=== PATIENT | female | born 1995 | race Caucasian/White ===

== ENCOUNTER 2021-05-27 17:26 | Emergency (ER) | payer MEDICAID, SELFPAY ==
--- NOTE | ~2021-05-27 | XR_ITS ---
EXAMINATION: XR CHEST CLINICAL INFORMATION: Cough COMPARISON: None TECHNIQUE: Frontal view of the chest was obtained. FINDINGS: No significant abnormality is noted involving the heart, lungs, mediastinum, bony thorax or soft tissues. XR/XR chest 1V IMPRESSION: No acute pulmonary disease.
[2021-05-27 17:47] VITALS: BP 113/65; PULSE 69; RESP 18; TEMP 36.9; O2SAT 100; BMI 30.7
== END 2021-05-27 19:47 | disposition left against medical advice (07) ==
PROVIDERS: Emergency Provider Emergency Medicine; PCP Internal Medicine
DX: R05.9 Cough, unspecified (principal); R51.9 Headache, unspecified
CPT/HCPCS: 71045; 99282; 99283

== ENCOUNTER → 2022-04-17 13:57 | Outpatient (BNVA) | payer MEDICAID, SELFPAY | PROVIDERS: PCP Internal Medicine; Visit Provider Surgery | DX: K64.8 Other hemorrhoids (principal) | CPT/HCPCS: 46600; 99202 ==

== ENCOUNTER 2022-07-18 08:35 | Day surgery (SDC) | payer MEDICAID, SELFPAY ==
[2022-05-27 11:49] VITALS: BMI 31.6
[2022-07-18] VITALS (19 sets, daily range): BP systolic 102–144; BP diastolic 64–80; PULSE 56–97; RESP 10–20; TEMP 37.1–38; O2SAT 94–100
[2022-07-18 09:01] LABS: UPreg QC Valid YES; Urine Pregnancy NEGATIVE (NEGATIVE)
[2022-07-18] MEDS: Lactated Ringers 1,000 ML 50 ML IVCONT (09:12)
--- NOTE | 2022-07-18 09:28 | HO.ANESPROP2 ---
HPI - Anesthesia Eval Consult details Narrative: 26 yo female patient for EUA, Hemorrhoidectomy PMFSH Active Problems Active Problems: All Active Problems (Updated 07/18/22 @ 09:11 by Amanda Oneill RN) Hemorrhoids with complication (Acute) Past Medical History Medical History (Updated 07/18/22 @ 09:34 by Sarah Streeter MD) Asthma Hemorrhoids with complication Family History Family History (Updated 04/17/22 @ 14:09 by LEONA Lewis) Paternal Aunt Breast cancer Family history of problems with anesthesia: No Surgical History Surgical History (Updated 07/18/22 @ 09:11 by Amanda Oneill RN) Hx of laparoscopic gastric banding History of Problems with Anesthesia: No Social History Social History (Updated 04/17/22 @ 14:10 by LEONA Lewis) Alcohol intake: never Patient Tobacco Use Status: Never used Tobacco Are you DNR?: No Advance Directives: No Advance Directives Information Provided: Yes Recently lost weight without trying: No Patient : No FDLMP: 2 weeks ago Meds Allergies Allergy/AdvReac Type Severity Reaction Status Date / Time No Known Allergies Allergy Verified 04/17/22 14:07 Active Medications: Current Medications Lactated Ringer's (Lr) 1,000 mls @ 50 mls/hr IVCONT .Q20H [place] Last Admin: 07/18/22 09:12 Dose: 50 mls/hr Home Medications Medication Instructions Recorded Confirmed Last Taken Type albuterol sulfate 90 mcg/actuation 2 inh inhalation Q4-6H PRN Wheezing 07/18/22 07/18/22 05/28/22 History aerosol inhaler Exam Exam Date and Time: July 18, 202228 Height,Weight and Vital Signs: Height 5 ft Weight 73.482 kg Last Vital Signs Temp 98.7 F 07/18/22 08:55 Pulse 97 07/18/22 08:55 Resp 20 07/18/22 08:55 BP 102/67 07/18/22 08:55 Pulse Ox 98 07/18/22 08:55 O2 Del Method 07/18/22 08:55 Pertinent Lab Results Pertinent Lab Results: Laboratory Tests 07/18/22 08:40 Urine Test NEGATIVE Airway Mallampati Class: I TM Dist: >3cm Neck ROM: Full Loose/Missing/Broken Teeth: No (Denies broken, loose, missing teeth) Heart: RRR Lungs: CTAB. No wheezes Assessment and Plan Assessment Anesthesia Assessment: Anesthesia Plan Discussed and Chart Reviewed Final Anesthetic Review Family History of Problems with Anesthesia: No History of Problems with Anesthesia: No NPO: Yes ASA Class: II Final Preanesthetic Review: No Changes in Pt Med Stat, Meds/Allgs Chart Reviewed, Consent Obtained/Reviewed and Anes Risks/Benef Reviewed Patient Risk: Low Procedure Risk: Low Assessment/Block/Sedation in SS: Assess/Block/Sedation-SS Anesthetic Plan Anesthetic Plan: GA Disposition: Standard PACU
--- NOTE | 2022-07-18 09:52 | MHC.SHP ---
Pre-Procedural Eval Section A Date of Service: 07/18/22 The patient is an INPATIENT: No Section B Chief Complaint: Other hemorrhoids Details of Present Illness: has had pain and swelling with hemorrhoids Relevant Family History (Specify if Yes): No Relevant Social History: None Present Medications: None Medical History: No relevant PMH History of Previous Operations: No relevant previous surgery Allergies: Allergies Allergy/AdvReac Type Severity Reaction Status Date / Time No Known Allergies Allergy Verified 04/17/22 14:07 Review of Systems Sugical H&P ROS: Negative: Constitution, Cardiovascular, Respiratory, Neurological, Psychiatric, Hem-Onc, Allergic/Immunologic, Gastrointestinal, Genitourinary, Musculoskeletal, Integumentary, Endocrine and Eyes/Ears/Nose/Throat Exam Surgical H&P Exam: Normal: HEENT, Normal: Heart, Normal: Lungs, Normal: Extremities, Normal: Abdomen, Normal: Skin and Normal: Neurological Plan Diagnosis/Plan: Unchanged I have reviewed the history and physical and performed a pertinent physical examination on my patient. No changes have occurred unless specified. Time Spent With Patient Time: Total time managing care of this patient today ____ minutes.
--- NOTE | 2022-07-18 10:54 | W.PM.OPN ---
Operative Note Operative Note Date of Service: 07/18/22 Narrative: Preop diagnosis: Internal and external hemorrhoids with pain Postop diagnosis: The same Procedure: Exam under anesthesia hemorrhoidectomy x2 columns Surgeon: Dex Jackson MD Director Of Operations Home Health:ROBI Nunez student The patient is a 26 year female with a long history of frequent pain and swelling with her hemorrhoids. She was seen in the office and was noted to have prominent internal and hemorrhoidal columns on both the left and right side. Because of her symptoms wanted to proceed hemorrhoidectomy. She understood the technique for procedure as well as the risks, benefits, and alternatives Was brought to the operating room placed in prone ishan-knife position under general anesthesia via LMA. The buttocks were retracted with wide tape laterally. The perianal area was prepped and draped in the usual sterile fashion. A surgical time-out was done. The patient received Cefotan 2 g IV preoperatively. Examination of the anal orifice revealed prominent external hemorrhoids on both the left and right side. I inserted a Armond Kim retractor and examined the anal canal circumferentially. Again these hemorrhoidal columns were noted and were seen to be a mix of internal and external. There were no other lesions. I applied a Martinze grasper at the hemorrhoidal column on the left to retract this. I made a toyqdx-qz-mffih stitch using chromic 3-0 at the pedicle about the dentate line. I made an incision around this hemorrhoidal column to the perianal skin using blade a blade 15. I excised this hemorrhoidal column along this incision about the plane of the sphincters using scissors. I closed this incision with a running chromic 3-0 stitch. Additional hemostatic hliyfo-vt-wyjlp sutures were placed for oozing areas . The same procedure was duplicated for the hemorrhoidal column on the right. Again this was retracted with a Martinez grasper. I made a figure of 8 stitch at the pedicle. I made an incision around this hemorrhoidal column to the perianal skin using a blade 15. I excised this hemorrhoidal column above the plane of sphincters using scissors and closed the incision with a running chromic 3-0 stitch. Multiple additional hemostatic ylzoiz-ay-xtmrw sutures were placed . There was note of a small external hemorrhoid anteriorly which causing some skin redundancy so this was excise again as well using a blade number 15. This represented likely a skin tag from previous L swelling. I closed this incision with a running chromic 3-0 stitch . I observed for hemostasis. Once hemostasis was confirmed, I positioned a rolled Gelfoam packing into the anal canal for additional hemostasis. I infiltrated the perianal area with Marcaine 0.5% for postop analgesia. The procedure was completed. The patient tolerated the procedure well. There were no immediate complications. Initial and final counts of sponges and instruments were correct. Estimated blood loss about 25 cc. The patient was extubated without difficulty and transferred to the recovery room with stable vital signs.
[2022-07-18] MEDS: oxyCODONE HCl Immed Release 5 MG TABLET PO ×2 (11:16→12:20)
[2022-07-18] MEDS: Acetaminophen 325 MG TABLET 650 MG PO (11:17)
[2022-07-18] MEDS: fentaNYL citrate/PF 100 MCG/2 ML VIAL 25 MCG IVPUSH ×4 (11:19→11:37)
[2022-07-18] MEDS: fentaNYL citrate/PF 100 MCG/2 ML VIAL 50 MCG IVPUSH (12:19)
== END 2022-07-18 13:39 | disposition home or self-care (01) ==
PROVIDERS: Anesthesiology; PCP Internal Medicine; Visit Provider Surgery
PROC: (CPT 46260; principal; 2022-07-18 10:10)
DX: K64.8 Other hemorrhoids (principal); K64.4 Residual hemorrhoidal skin tags; K62.89 Other specified diseases of anus and rectum; J45.909 Unspecified asthma, uncomplicated; Z79.899 Other long term (current) drug therapy; Z98.84 Bariatric surgery status
CPT/HCPCS: 46260; 81025; 88304; J1100; J1885; J2250; J2405; J2550; J2795; J3010

== ENCOUNTER → 2022-07-30 10:38 | Outpatient (BNVA) | payer MEDICAID, SELFPAY | PROVIDERS: PCP Internal Medicine; Referring Provider Internal Medicine; Visit Provider Surgery | DX: Z13.89 Encounter for screening for other disorder (principal) ==

== ENCOUNTER → 2022-08-27 10:40 | Outpatient (BNVA) | payer MEDICAID, SELFPAY | PROVIDERS: PCP Internal Medicine; Referring Provider Internal Medicine; Visit Provider Surgery | DX: Z13.89 Encounter for screening for other disorder (principal) ==

== ENCOUNTER 2023-05-13 11:44 | Outpatient (REF) | payer MEDICAID, SELFPAY ==
[2023-05-14 02:36] LABS: CT PCR NOT DETECTED (Not Detect.); NG PCR NOT DETECTED (Not Detect.)
[2023-05-14 08:25] LABS: Syphilis Screen Nonreactive (Nonreactive)
[2023-05-14 08:40] LABS: ~Hepatitis C Antibody Nonreactive (Nonreactive)
[2023-05-16 17:27] LABS: HIV RNA PCR Qn Copies Not Detected Copies/mL; HIV RNA PCR Qn Log Copies Not Detected Log cps/mL
== END 2023-05-13 11:45 | disposition home or self-care (01) ==
LOC: HO.CHCLDS 11:44
PROVIDERS: Visit Provider Internal Medicine
DX: Z11.4 Encounter for screening for human immunodeficiency virus [HIV] (principal); Z20.2 Contact with and (suspected) exposure to infections with a predominantly sexual mode of transmission
CPT/HCPCS: 0353U; 36415; 86780; 86803; 87536; 87900

== ENCOUNTER 2023-06-26 13:09 | Outpatient (REF) | payer MEDICAID, SELFPAY ==
[2023-06-26 15:30] LABS: Influenza A PCR NEGATIVE (Negative); Influenza B PCR NEGATIVE (Negative); Resp Syncy Virus RNA Qual PCR NEGATIVE (Negative); SARS COV2 PCR INHOUSE NEGATIVE (Negative)
== END 2023-06-26 13:10 | disposition home or self-care (01) ==
LOC: HO.CHCLNP 13:09
PROVIDERS: Visit Provider Registered Nurse
DX: Z11.52 Encounter for screening for COVID-19 (principal); R09.81 Nasal congestion
CPT/HCPCS: 0241U

== ENCOUNTER 2023-07-29 15:39 | Outpatient (REF) | payer MEDICAID, SELFPAY ==
--- NOTE | ~2023-07-29 | XR_ITS ---
EXAMINATION: XR KNEE, LEFT CLINICAL INFORMATION: Chronic medial left knee pain for one week COMPARISON: None available. TECHNIQUE: Three views of the left knee. FINDINGS: BONES: Bony structures are intact. There is no focal bone destruction or periosteal reaction seen. JOINTS: Alignment of joints is normal. SOFT TISSUE: Soft tissue is normal. No radiopaque foreign body or abnormal air collection is seen. XR/XR knee LT 3V IMPRESSION: 1. Normal x-rays of left knee. No fracture or dislocation or signs of osteomyelitis are found.
== END 2023-07-29 15:40 | disposition home or self-care (01) ==
LOC: HO.HHCX 15:39
PROVIDERS: Visit Provider Registered Nurse
DX: M25.562 Pain in left knee (principal); G89.29 Other chronic pain
CPT/HCPCS: 73562

== ENCOUNTER 2023-10-08 09:29 | Outpatient (REF) | payer MEDICAID, SELFPAY ==
[2023-10-10 21:43] LABS: TS Negative Control Passed; TS Panel A 0; TS Panel B 0; TS Positive Control Passed; TSpotTB Negative (Negative)
== END 2023-10-08 09:30 | disposition home or self-care (01) ==
LOC: HO.CHCLDS 09:29
PROVIDERS: Visit Provider Internal Medicine
DX: Z11.1 Encounter for screening for respiratory tuberculosis (principal)
CPT/HCPCS: 36415; 86481

== ENCOUNTER 2025-04-17 11:48 | Outpatient (REF) | payer MEDICAID, SELFPAY ==
[2025-04-17 16:39] LABS: Bacterial Vaginosis PCR POSITIVE (Negative); Candida Group PCR NOT DETECTED (Not Detect); Candida glab krusei PCR NOT DETECTED (Not Detect); Trichomonas vaginalis PCR NOT DETECTED (Not Detect)
[2025-04-17 17:10] LABS: CT PCR NOT DETECTED (Not Detect.); NG PCR NOT DETECTED (Not Detect.)
== END 2025-04-17 11:49 | disposition home or self-care (01) ==
LOC: HO.CHCLNP 11:48
PROVIDERS: Visit Provider Internal Medicine
DX: N89.8 Other specified noninflammatory disorders of vagina (principal); Z20.2 Contact with and (suspected) exposure to infections with a predominantly sexual mode of transmission
CPT/HCPCS: 81515; 87491; 87591

== ENCOUNTER 2025-06-15 10:52 | Outpatient (REF) | payer MEDICAID, SELFPAY ==
--- OUTSIDE RECORDS SUMMARY | 2025-06-15 14:01 | XMS_ITS | Clinical Summary ---
Author Organization [facility] Address [address] [place] [phone] Phone Care Team Providers Care Activities Leader Name Role Phone Wisam Mcintyre MD Primary Care Prov ider Allergies No known active allergies Medications HYDROcodone-akila taminophen (NORCO) 5-325 mg per tablet Take 1 tablet by mouth every 6 (six) hours as needed. Patient may request a partial fill. 10 tablet 2 Active albuterol 90 mcg/actuation inhaler inhale 2 puffs by Inhalation route every 4-6 hours as needed for shortness of breath or wheezing 2 Active hydrOXYzine (ATARAX) 25 MG tablet TAKE 1 TABLET BY MOUTH UP TO THREE TIMES DAILY NEEDED FOR ANXIETY 3 Active ibuprofen (ADVIL,MOTRIN) 600 MG tablet 3 Active ketoconazole (NIZORAL) 2 % shampoo APPLY TOPICALLY 1 TIME PER WEEK 3 Active Active Problems Problem Noted Date Diagnosed Date Pannus, abdominal 11/18/2022 Skin laxity 11/18/2022 Neck pain 11/18/2022 Lipodystrophy 11/18/2022 Intertrigo 11/18/2022 Family History Relation Status Comments Father Alive Mother Alive Social History Tobacco Use Types Packs/Day Years Used Date Smoking Tobacco: Never Smokeless Tobacco: Never Tobacco Cessation:Counseling Given: Not Answered Alcohol Use Standard Drinks/Week Comments Not Currently 0 (1 standard drink = 0.6 oz pur e alcohol) Education Answer Date Recorded Are you interested in more education? Not on katelin e 10/25/2022 Are you concerned about learning? Not on file 10/25/2022 No 10/25/2022 No 10/25/2022 Digital Access Answer Date Recorded No 11/18/2022 No 11/18/2022 Reliable internet access at home? Not on file 11/18/2022 Device with a working camera? Not on file Comments Unknown Sex and Gender Information Value Date Recorded Sex Assigned at Not on file Legal Sex Female 3:46 PM EDT Gender Identity Choose not to disclose 2:05 PM EST Sexual Orientation Choose not to disclose 2022 2:05 PM EST Last Filed Vital Signs Vital Sign Reading Time Taken Comments Blood Pressure 106/62 11/11/2022 2:18 PM EDT Pulse 59 11/11/2022 2:18 PM EDT Temperature - - Respiratory Rate - - Oxygen Saturation - - Inhaled Oxygen Concentration - - Weight 72.3 kg (159 lb 6.4 oz) 11/11/2022 2:18 P M EDT Height 154.9 cm (5' 1 ) 11/11/2022 2:18 PM EDT Body Mass Index 30.12 11/11/2022 2:18 PM EDT Plan of Treatment Upcoming Encounters Date Type Department Care Team (Late st Contact Info) Description 02/06/2026 1:00 PM EDT Office Visit [facility] [address] [place] [address] Carrie Lockett OD [email or web address] Health Maintenance Due Date Last Done Comments DEPRESSION SCREENING 2007 HEPATITIS C SCREENING 09/10/2013 HIV ONE-TIME SCREENING (18-6 5 YEARS) 09/10/2013 PAP SMEAR 09/10/2016 INFLUENZA VACCINE (#1) 2025 2, 04/03/2020 COVID-19 VACCINE (2 - 2024-2 6 season) 2025 09/19/2021 Adult Td,Tdap Booster 06/27/2030 06/27/2020 SMOKING STATUS SCREENING (On ce After 26 Yrs) Completed 12/14/2024 HEPATITIS A VACCINES Aged Out No long er eligible based on patient's age to complete this topic HIB VACCINES Aged Out No longer eligi ble based on patient's age to complete this topic MENINGOCOCCAL VACCINES (ACWY) Aged Out No longer eligible based on patient's age to complete this topic MENINGOCOCCAL VACCINES (B) Aged Out N o longer eligible based on patient's age to complete this topic PNEUMOCOCCAL VACCINES (0-49 years) Aged Out No longer eligible b ased on patient's age to complete this topic Medical Devices Not on file Insurance C3 [place]CO [place] [id number] [address]CO [address] [place] [place] [address] C3 ACO C3 ACO C3 ACO C3 ACO Care Teams Activities Leader Relationship Specialty Start Date End Date Wisam Mcintyre MD [address] [place] [phone] PCP - General Internal Medicine 08/07/22 Additional Source Comments The information contained in this document represents components of the legal health record. It is not the complete legal health record.[facility]
--- OUTSIDE RECORDS SUMMARY | 2025-06-15 14:01 | XMS_ITS | Patient Health Record ---
Author Organization [facility] Address [address] [place] [address] Care Team Providers Care Clay Miner Name Role Phone Dr. Rivas Gongora Primary Care Provider [phone] Reason For Referral No Information Social History Tobacco Use: Social History Observation Description Date Details (start date - stop date) Never Smoker NA - NA Drug/Alcohol: Question Answer Notes Did you have a drink containing alcohol in the p ast year? No Points 0 Interpretation Positive Smoking Question Answer Notes Are you a: never smoker Problems Problem Type SNOMED Code ICD Code Onset Dates Problem Status W/U Status Risk Notes Problem Obesity (939005366) Obesity, unspecified (E66.9) Active confirmed Problem Body mass index 30.00 to 34.99 (97149960040 4107) Body mass index (BMI) 33.0-33.9, adult (Z68.33) Active confirmed Plan Of Treatment Pending Test Test Name Order Date VENIPUNCT, ROUTINE* 12/24/2018 VENIPUNCT, ROUTINE* 12/28/2018 QuantiFERON TB Gold 12/24/2018 Insurance Providers Payer Name Payer Address Payer Phone Subscriber Number Group Number Insured Name Patient Relationship to Insured Coverage Start Date Coverage End Date GHI [address] [place] [address] [phone] [id number] DEBBIE BROWN Child - Insured has Financial Responsibility 7 Medical (General) History Surgical History Surgery Date(Month/Year) GASTRO BANDING 10/11/2013 Hospitalization History Reason Date(Month/Year) ABOVE 2013
--- OUTSIDE RECORDS SUMMARY | 2025-06-15 14:02 | XMS_ITS | Clinical Summary ---
Author Organization [address] [place] [address] [place] [phone] Phone Care Team Providers Care Iron Molder Helper Name Role Phone Wisam Mcintyre Primary Care Provide r Allergies No known active allergies Medications multivit-minerals /folic acid (WOMEN'S MULTIVITAMIN GUMMIES ORAL) Take by mouth daily. Active lisdexamfetamine (Vyvanse) 50 mg capsuleIndication s:Binge eating disorder, unspecified severity Take 1 capsule (50 mg total) by mouth 1 (one) time each day in the morning. Max Daily Amount: 50 mg 30 capsule 5 Active cholecalciferol (VITAMIN D-3) 25 mcg (1,000 unit) tablet Take 1 tablet (1,000 Units total) by mouth 1 (one) time each day. 5 Active cetirizine (ZyrTEC) 10 mg tablet TAKE 1 TABLET BY MOUTH DAILY IN THE MORNING NEEDED FOR SNEEZING AND ITCH 4 Active ketoconazole (NIZORAL) 2 % cream Apply topically 1 (one) time each day. 30 g 2 5 Active terbinafine (LamISIL) 250 mg tablet Take 1 tablet (250 mg total) by mouth 1 (one) time each day. 30 tablet 2 5 08/14/19 26 Active tirzepatide, weight loss, (Zepbound) 10 mg/0.5 mL injection Inject 0.5 mL (10 mg total) under the skin every 7 (seven) days. 2 mL 5 06/30/19 26 Active Active Problems Problem Noted Date Diagnosed Date Snoring 10/07/2024 Mixed conductive and sensori neural hearing loss of both ears 10/07/2024 Lower extremity edema 10/07/2024 Bilateral carpal tunnel syndrome 10/07/2024 Chronic bilateral low back pain without sciatica 07/17/2024 Angio-edema 04/27/2024 Overweight 10/06/2023 Multiple joint pain 10/06/2023 Shortness of breath 04/14/2023 Seasonal allergies 04/14/2023 Migraine without aura and wi thout status migrainosus, not intractable 11/20/2022 Pannus, abdominal 11/18/2022 Neck pain 11/18/2022 Skin laxity 11/18/2022 Lipodystrophy 11/18/2022 Acne vulgaris 11/04/2022 Adjustment disorder with mixed anxiety and depre ssed mood 10/22/2022 Intertrigo 07/10/2022 Anxiety 07/10/2022 Mild intermittent asthma without complication Overview (12/07/2024): PFT completed Mar 2023 with the following impression: Normal spirometry with a significant bronchodilator response. Normal lung volumes. MVV level is consistent with level of FEV1. DLCO is normal however not corrected for Hbg. The finding of bronchodilator response with normal spirometry is consistent with asthma Cont albuterol PRN (use before exercise PRN) Reviewed rule of 2's and indication for step up therapy Encounters Date Type Department Care Team Description 05/30/2025 Telephone Bariatric Surgery [facility] [address] [phone] Adriane Carter PA 05/16/2025 2:15 PM EST Office Visit Orthopedic Surgery [facility] [address] [phone] Damion Nieto, DPWilmar Dermatophytosis of nail (Primary Dx); Verruca plantaris; Tinea pedis of both feet 04/10/2025 Telephone Bariatric [facility] [address] [phone] Isidro Newell MD 03/28/2025 Telephone Bariatric Surgery [address] [phone] Isidro Newell MD 03/27/2025 Telephone Orthopedic Surgery [facility] [address] [phone] Carrie Fernandez from Last 3 Months Surgical History Surgery Date Site/Laterality Comments OTHER SURGICAL HISTORY 2013 PROCEDURE: ---- OTHER ----; COMMENT: gastric band Family History Medical History Relation Name Comments No Known Problems Father No Known Problems Mother Relation Name Status Comments Father Alive Mother Alive Social History Tobacco Use Types Packs/Day Years Used Date Smoking Tobacco: Never Alcohol Use Standard Drinks/Week Comments Yes 0 (1 standard drink = 0.6 oz pur e alcohol) Comments Unknown Sex and Gender Information Value Date Recorded Sex Assigned at Not on file Legal Sex Female 4:33 AM EST Gender Identity Not on file Sexual Orientation Not on file Last Filed Vital Signs Vital Sign Reading Time Taken Comments Blood Pressure 109/67 10/11/2024 2:43 PM EDT Pulse 73 10/11/2024 2:43 PM EDT Temperature 36.6 C (97.8 F) 10/11/2024 2:43 PM EDT Respiratory Rate - - Oxygen Saturation - - Inhaled Oxygen Concentration - - Weight 78 kg (172 lb) 10/11/2024 2:43 PM EDT Height 152.4 cm (5') 10/11/2024 2:43 PM EDT Body Mass Index 33.59 10/11/2024 2:43 PM EDT Plan of Treatment Upcoming Encounters Date Type Department Care Team (Late st Contact Info) Description 06/27/2025 9:30 AM EST Office Visit Bariatric Surgery [facility] [address] [phone] Isidro Newell MD [address] [place] [phone] 07/18/2025 1:45 PM EST Office Visit Orthopedic Surgery [facility] [address] [phone] Damion Nieto, DPM [address] [phone] Health Maintenance Due Date Last Done Comments Pneumococcal Vaccine: Pediatrics (0 to 5 Years) and At-Risk Patients (6 to 49 Years) (1 of 2 - PCV) 09/10/2014 Cervical Cancer Screening: P ap Smear 09/10/2016 HIV Screening 06/01/2022 Social Influencers of Health Screening 06/01/2022 HPV Vaccines (1 - 3-dose SCD M series) 09/10/2022 Depression Screening 06/29/2024 COVID-19 Vaccine (2 - 2024-2 6 season) 2025 09/19/2021 Influenza Vaccine (#1) 2025 , 09/19/2021, 04/03/2020 Cholesterol Screening (Lipid Panel) 10/03/2029 10/03/2024 DTaP,Tdap,and Td Vaccines (2 - Td or Tdap) 06/27/2030 06/27/2020 RSV Immunization Adult Patients (1 - 1-dose 75+ series) 09/10/2070 Varicella Vaccines Aged Out 06/27/2020, 03/13/2020 No longer eligible based on patient's age to complete this topic Hepatitis B Vaccines Completed 10/30/2020, 08/30/2020, 06/27/2020 Hepatitis C Screening Completed 05/13/2023 HIB Vaccines Aged Out No longer eligi ble based on patient's age to complete this topic Hepatitis A Vaccines Aged Out No long er eligible based on patient's age to complete this topic IPV Vaccines Aged Out No longer eligi ble based on patient's age to complete this topic MMR Vaccines Aged Out No longer eligi ble based on patient's age to complete this topic Meningococcal ACWY Vaccine Aged Out N o longer eligible based on patient's age to complete this topic Meningococcal B Vaccine Aged Out No l onger eligible based on patient's age to complete this topic RSV Immunization Patients Under 20 months Aged Out No longer eligible b ased on patient's age to complete this topic Insurance MEDICAID - [place] Care Teams Iron Molder Helper Relationship Specialty Start Date End Date Wisam Mcintyre [address], [place] PCP - General Internal Medicine 07/23/21
[2025-06-15 15:06] LABS: MANUAL DIFF FLAG NO
[2025-06-15 15:22] LABS: Hematocrit 34.6 % (37.0-47.0); Hemoglobin 11.2 g/dl (12.0-16.0); Imm Gran Abs Auto 0.00 X10*3/uL (0.00-0.03); Imm Gran Pct Auto 0.0 % (0.0-0.4); Lymphocytes Absolute Auto 1.2 X10*3/uL (1.2-4.9); Mean Corpuscular HGB Conc 32.4 g/dl (31.0-35.0); Mean Corpuscular Hemoglobin 31.6 pg (27.0-33.0); Mean Corpuscular Volume 97.7 fL (80.0-98.0); NRBC Abs Auto 0.000 X10*3/uL (0.0-0.012); NRBC Pct Auto 0.0 /100WBC (0.0-0.2); Platelet Count 178 X10*3/uL (160-400); Red Blood Count 3.54 X10*6/uL (4.20-5.50); White Blood Count 3.6 X10*3/uL (4.8-10.8)
[2025-06-15 16:04] LABS: Anion Gap 8 (12-20); Blood Urea Nitrogen 13 mg/dL (9-16); Calcium 8.4 mg/dL (8.4-10.2); Carbon Dioxide 25 mmol/L (22-29); Chloride 109 mmol/L (96-108); Estimated Glomerular Filt Rate > 60; Ferritin 144 ng/mL (10-122); Iron 89 mcg/dL (30-160); Percent Iron Saturation 49 % (15-50); Potassium 4.0 mmol/L (3.3-5.1); Sodium 138 mmol/L (135-145); Total Iron Binding Capacity 182 mcg/dL (228-428); Unsaturated Iron Binding 93 ug/dL
== END 2025-06-15 10:53 | disposition home or self-care (01) ==
LOC: HO.CHCLDS 10:52
PROVIDERS: Visit Provider Internal Medicine
DX: Z00.00 Encounter for general adult medical examination without abnormal findings (principal)
CPT/HCPCS: 36415; 80048; 82728; 83540; 85025